=== PATIENT | female | born 1970 ===

== ENCOUNTER 2017-02-01 11:17 | Emergency (ER) | payer OTHER ==
[~2017-02-01] VITALS: Ht 167.6 cm; Wt 66.5 kg
[2017-02-01 11:22] VITALS: Ht 167.6 cm; Wt 66.5 kg
[2017-02-01] MEDS ORDERED: morphine 4 MG/ML VIAL IV STA (12:24)
[2017-02-01] MEDS ORDERED: ONDANSETRON 4 MG INJ IV STA (12:24)
[2017-02-01 12:49] LABS: BASOPHILS % 0.4 % (0.0-2.0); EOSINOPHILS # 0.3 10^3/ul (0.0-0.5); EOSINOPHILS % 2.6 % (0.0-7.0); HEMATOCRIT 39.5 % (37.0-47.0); LYMPHOCYTES # 1.7 10^3/ul (0.8-2.9); MEAN CORPUSCULAR HEMOGLOBIN 27.6 pg (29.0-33.0); MEAN CORPUSCULAR HGB CONC 32.9 g/dl (32.0-37.0); MEAN CORPUSCULAR VOLUME 83.9 fl (82.0-101.0); MEAN PLATELET VOLUME 9.6 fl (7.4-10.4); MONOCYTE # 0.6 10^3/ul (0.3-0.9); NEUTROPHIL # 7.8 10^3/ul (1.6-7.5); NEUTROPHILS % 74.6 % (39.0-77.0); PLATELET COUNT 243 10^3/UL (140-415); RED BLOOD COUNT 4.71 10^6/ul (4.20-5.40); RED CELL DISTRIBUTION WIDTH 14.1 % (11.5-14.5); WHITE BLOOD COUNT 10.5 10^3/ul (4.8-10.8)
[2017-02-01 12:58] LABS: ADD UMIC YES; UR ASCORBIC ACID 40 mg/dL (NEGATIVE); UR BILIRUBIN (Dip) NEGATIVE (NEGATIVE); UR BLOOD (Dip) NEGATIVE (NEGATIVE); UR CLARITY SLIGHTLY CLOUDY (CLEAR); UR COLOR YELLOW (YELLOW); UR GLUCOSE (Dip) NEGATIVE (NEGATIVE); UR KETONES (Dip) NEGATIVE (NEGATIVE); UR LEUKOCYTE ESTERASE (Dip) 2+ Leu/ul (NEGATIVE); UR NITRITE (Dip) NEGATIVE (NEGATIVE); UR RBC 14 /HPF (0-5); UR SPECIFIC GRAVITY (Dip) 1.017 (1.003-1.030); UR SQUAMOUS EPITHELIAL CELL MODERATE /HPF (FEW); UR TOTAL PROTEIN (Dip) NEGATIVE (NEGATIVE); UR UROBILINOGEN (Dip) NEGATIVE (NEGATIVE)
--- NOTE | 2017-02-01 13:12 | RADRPT ---
PROCEDURE: CT Abdomen and Pelvis without contrast. CLINICAL INDICATION: Abdominal and pelvic pain. TECHNIQUE: CT scan of the abdomen and pelvis without contrast was performed. Coronal and sagittal reformatted images were obtained from the axial source images. Images were reviewed on a high-resolu [employer] PACS workstation. Total exam DLP is 426.09 mGy-cm. CTDIvol is 7.78 mGy. One or more of the fo llomartell dose reduction techniques were used: Automated exposure control, adjustment of the mA and/or kV according to patient size, use of iterative reconstruction technique. COMPARISON: None. FINDINGS: The lung bases are normal. There is no pleural effusion. The liver is normal in size and attenuation. There is no focal hepatic lesion. The gallbladder and bile ducts are normal. The spleen is normal in size. There is no focal splenic lesion. Both adrenals are normal with no enlargement or mass. The pancreas is unremarkable with no mass or evidence of pancreatitis. There is no renal mass or hydronephrosis. There is a nonobstructing 0.2 cm calculus in the mid to lo wer left kidney. There is no other renal calculus or ureteral calculus. The abdominal aorta is not dilated. There is no retroperitoneal lymphadenopathy or mass. There is no pelvic lymphadenopathy. There is a right adnexal cystic mass measuring 4.5 x 3.5 cm. The bladder and distal ureters are normal. The periappendiceal region is unremarkable with no evidence of appendicitis. The appendix is well se en and appears normal. The bowel and mesentery are normal. There is no free fluid or free gas. The osseous structures are unremarkable with no fracture or lytic lesion. IMPRESSION: 1. Right adnexal cystic mass measuring 4.5 x 3.5 cm. Correlation with pelvic ultrasound is advised. 2. Nonobstructing 0.2 cm calculus in the mid to lower left kidney. No ureteral calculus or hydronep hrosis. 3. Normal appendix. 4. Otherwise unremarkable noncontrast CT scan of the abdomen and pelvis appear RPTAT: QQ .Rubin Braga MD, MD Date Time Electronically viewed and signed by .Rubin Braga MD, on 02/01/2017 13:12 .Nuno
[2017-02-01 13:18] LABS: ALBUMIN 4.4 g/dl (3.3-4.9); ALBUMIN/GLOBULIN RATIO 1.12; BILIRUBIN,INDIRECT 0.5 mg/dl (0-1.1); BILIRUBIN,TOTAL 0.5 mg/dl (0.2-1.3); CALCIUM 9.1 mg/dl (8.4-10.2); CREATININE 0.61 mg/dl (0.44-1.00); POTASSIUM 4.3 mmol/L (3.5-5.1); TOTAL PROTEIN 8.3 g/dl (6.1-8.1)
--- NOTE | 2017-02-01 13:30 | ERD ---
ER Documentation Chief Complaint Date/Time DATE: 02/01/17 TIME: 13:30 Chief Complaint Complains of abdominal pain x 3 days HPI This is 46-year-old female who presents the emergency department today complaining of lower abdominal pain for the past 5 days. States that she think she had a fever a couple of days ago. States that she does have some pain with urination. States that she also has been having irregular menstrual cycles and has not had her period for 3 months and then started spotting. States she has a history of ovarian cyst and had her tumor markers evaluated and as of late they were decreasing. Denies any vomiting, diarrhea, constipation ROS All systems reviewed and are negative except as per history of present illness. Medications Home Meds Active Scripts Acetaminophen* (Tylophen*) 500 Mg Capsule, 1 CAP PO Q6H Y for PAIN AND OR ELEVATED TEMP, #30 CAP Prov:HEIDY RAYGOZA PA-C 02/01/17 Cephalexin* (Keflex*) 500 Mg Capsule, 500 MG PO QID for 7 Days, CAP Prov:HEIDY RAYGOZA PA-C 02/01/17 Naproxen* (Naprosyn*) 500 Mg Tablet, 500 MG PO BID Y for PAIN AND/OR INFLAMMATION, #30 TAB Prov:HEIDY RAYGOZA PA-C 02/01/17 Allergies Allergies: Coded Allergies: No Known Allergy (Unverified , 02/01/17) Physical Exam Vitals Vital Signs Date Time Temp Pulse Resp B/P Pulse Ox O2 Delivery O2 Flow Rate FiO2 02/01/17 11:22 98.9 93 20 119/67 96 Physical Exam Const: NAD Head: Atraumatic Eyes: Normal Conjunctiva ENT: Normal External Ears, Nose and Mouth. Neck: Full range of motion..~ No meningismus. Resp: Clear to auscultation bilaterally Cardio: Regular rate and rhythm, no murmurs Abd: Soft, diffuse lower abdominal pain non distended. Normal bowel sounds Skin: No petechiae or rashes Back: No midline or flank tenderness Ext: No cyanosis, or edema Neur: Awake and alert Psych: Normal Mood and Affect Result Diagram: 02/01/17 1235 02/01/17 1235 Results 24 hrs Laboratory Tests Test 02/01/17 12:35 White Blood Count 10.510^3/ul Red Blood Count 4.7110^6/ul Hemoglobin 13.0g/dl Hematocrit 39.5% Mean Corpuscular Volume 83.9fl Mean Corpuscular Hemoglobin 27.6pg Mean Corpuscular Hemoglobin Concent 32.9g/dl Red Cell Distribution Width 14.1% Platelet Count 38570^3/UL Mean Platelet Volume 9.6fl Neutrophils % 74.6% Lymphocytes % 16.0% Monocytes % 6.0% Eosinophils % 2.6% Basophils % 0.4% Nucleated Red Blood Cells % 0.0/100WBC Neutrophils # 7.810^3/ul Lymphocytes # 1.710^3/ul Monocytes # 0.610^3/ul Eosinophils # 0.310^3/ul Basophils # 0.010^3/ul Nucleated Red Blood Cells # 0.010^3/ul Urine Color YELLOW Urine Clarity SLIGHTLY CLOUDY Urine pH 7.0 Urine Specific [place] 1.017 Urine Ketones NEGATIVEmg/dL Urine Nitrite NEGATIVEmg/dL Urine Bilirubin NEGATIVEmg/dL Urine Urobilinogen NEGATIVEmg/dL Urine Leukocyte Esterase 2+Trace/ul Urine Microscopic RBC 14/HPF Urine Microscopic WBC 9/HPF Urine Squamous Epithelial Cells MODERATE/HPF Urine Hemoglobin NEGATIVEmg/dL Urine Glucose NEGATIVEmg/dL Urine Total Protein NEGATIVEmg/dl Sodium Level 141mmol/L Potassium Level 4.3mmol/L Chloride Level 104mmol/L Carbon Dioxide Level 30mmol/L Anion Gap 11 Blood Urea Nitrogen 8mg/dl Creatinine 0.61mg/dl Glucose Level 95mg/dl Calcium Level 9.1mg/dl Total Bilirubin 0.5mg/dl Direct Bilirubin 0.00mg/dl Indirect Bilirubin 0.5mg/dl Aspartate Amino Transf (AST/SGOT) 36IU/L Alanine Aminotransferase (ALT/SGPT) 45IU/L Alkaline Phosphatase 69IU/L Total Protein 8.3g/dl Albumin 4.4g/dl Globulin 3.90g/dl Albumin/Globulin Ratio 1.12 Lipase 49U/L Current Medications Medications (Trade) Dose Ordered Sig/Teena Route PRN Reason Start Time Stop Time Status Last Admin Dose Admin Morphine Sulfate (morphine) 4 mg ONCE STAT IV 02/01/17 12:24 02/01/17 12:26 DC 02/01/17 12:39 Ondansetron HCl (Zofran Inj) 4 mg ONCE STAT IV 02/01/17 12:24 02/01/17 12:26 DC 02/01/17 12:39 DIAGNOSTIC IMAGING REPORT Patient: LEONILA RIBERA : 1970 Age: 46 Sex: F MR #: [id number] [facility] #: [id number] DOS: 02/01/17 1224 Ordering MD: HEIDY RAYGOZA PA-C Location: [facility] Room/Bed: PROCEDURE: CT Abdomen and Pelvis without contrast. CLINICAL INDICATION: Abdominal and pelvic pain. TECHNIQUE: CT scan of the abdomen and pelvis without contrast was performed. Coronal and sagittal reformatted images were obtained from the axial source images. Images were reviewed on a high-resolution PACS workstation. Total exam DLP is 426.09 mGy-cm. CTDIvol is 7.78 mGy. One or more of the following dose reduction techniques were used: Automated exposure control, adjustment of the mA and/or kV according to patient size, use of iterative reconstruction technique. COMPARISON: None. FINDINGS: The lung bases are normal. There is no pleural effusion. The liver is normal in size and attenuation. There is no focal hepatic lesion. The gallbladder and bile ducts are normal. The spleen is normal in size. There is no focal splenic lesion. Both adrenals are normal with no enlargement or mass. The pancreas is unremarkable with no mass or evidence of pancreatitis. There is no renal mass or hydronephrosis. There is a nonobstructing 0.2 cm calculus in the mid to lower left kidney. There is no other renal calculus or ureteral calculus. The abdominal aorta is not dilated. There is no retroperitoneal lymphadenopathy or mass. There is no pelvic lymphadenopathy. There is a right adnexal cystic mass measuring 4.5 x 3.5 cm. The bladder and distal ureters are normal. The periappendiceal region is unremarkable with no evidence of appendicitis. The appendix is well seen and appears normal. The bowel and mesentery are normal. There is no free fluid or free gas. The osseous structures are unremarkable with no fracture or lytic lesion. IMPRESSION: 1. Right adnexal cystic mass measuring 4.5 x 3.5 cm. Correlation with pelvic ultrasound is advised. 2. Nonobstructing 0.2 cm calculus in the mid to lower left kidney. No ureteral calculus or hydronephrosis. 3. Normal appendix. 4. Otherwise unremarkable noncontrast CT scan of the abdomen and pelvis appear RPTAT: QQ .Rubin Braga MD, MD Date Time Electronically viewed and signed by .Rubin Braga MD, MD on 02/01/2017 13:12 .R/ CC: HEIDY RAYGOZA PA-C DIAGNOSTIC IMAGING REPORT Patient: LEONILA RIBERA : 1970 Age: 46 Sex: F MR #: [id number] DOS: 02/01/17 0000 Ordering MD: HEIDY RAYGOZA PA-C Location: [facility] Room/Bed: PROCEDURE: US Pelvis. CLINICAL INDICATION: Pelvic pain. TECHNIQUE: The pelvis was evaluated with transabdominal and transvaginal sonography in the axial and sagittal planes. COMPARISON: No prior study is available for comparison. FINDINGS: Uterus: 9.4 x 4.8 x 5.8 cm. Endometrium: 34.0 mm. Right ovary: 4.8 x 3.5 x 3.7 cm. Left ovary: Not visualized. Uterine masses: None. Ovarian masses: There is a benign-appearing right ovarian cyst measuring 4.2 x 2.8 x 2.9 cm. The left ovary is not visualized. Color Doppler and pulsed Doppler sonography demonstrate normal flow to the right ovary Other pelvic masses: None. Free fluid: None. IMPRESSION: 1. Benign-appearing right ovarian cyst measuring 4.2 x 2.8 x 2.9 cm. Follow-up pelvic ultrasound in 6 weeks is advised. 2. Thickened endometrium measuring 34 mm. Follow-up pelvic ultrasound in 6 weeks advised. 3. Otherwise unremarkable study. RPTAT: QQ .Rubin Braga MD, MD Date Time Electronically viewed and signed by .Rubin Braga MD, MD on 02/01/2017 14:27 .R/ CC: HEIDY RAYGOZA PA-C Procedures/MDM This is a [age]-year-old female who presents emergency department today complaining of abdominal pain for the past 5 days. Given this I did obtain a laboratory workup as well as imaging. Laboratory workup shows no elevated white blood cell count. She is not anemic. Platelets are within normal limits. Electrolytes are within normal limits. Glucose is within normal limits. Liver enzymes are within normal limits. Lipase within normal limits. UA shows 2+ leukocyte esterase. Negative nitrites. 9 Microscopic white blood cells. urine test is negative CT abdomen pelvis noncontrast shows a right adnexal cystic mass measuring 4.5 x 3.5 cm. There is a nonobstructing 0.2 cm calculus in the mid to lower left kidney. There is no ureteral calculus or hydronephrosis. There is a normal- appearing appendix. There is no free fluid or free air. Given evidence of right adnexal cystic mass did obtain a pelvic ultrasound Pelvic ultrasound is a benign-appearing right ovarian cyst measuring 4.2 x 2.8 x 2.9 cm. Follow-up pelvic ultrasound is recommended in 6 weeks. There is also a thickened endometrium measuring 34 mm. There is normal flow to the right ovary. Left ovary is not visualized. There is no evidence of free fluid. I do have low suspicion for ectopic , tubo-ovarian abscess, ovarian torsion. Low suspicion for acute surgical abdomen. Patient was given morphine and Zofran here in the emergency department and pain improved. Patient symptoms at this time is consistent with lower abdominal pelvic pain that may be related to this ovarian cyst. Patient does also have 2 + leukocyte esterase and she was complaining of some dysuria and therefore I will treat her with Keflex for her UTI. Patient will be given a prescription for Naprosyn and Tylenol for home as well she has been instructed to follow-up with [facility] especially given she has been having irregular menstrual cycles. At this time the patient is stable for discharge and outpatient management. Patient should follow up with their PCP in the next 1-2 days. They may return to the emergency department sooner for any persistent or worsening of symptoms. Patient understood and agreed with the plan. Departure Diagnosis: Primary Impression: Abdominal pain Abdominal location: lower abdomen, unspecified Qualified Code: R10.30 - Lower abdominal pain Additional Impression: UTI (urinary tract infection) Urinary tract infection type: site unspecified Hematuria presence: with hematuria Qualified Code: N39.0 - Urinary tract infection with hematuria, site unspecified Condition: HEIDY Laureano PA-C Feb 01, 2017 13:30
--- NOTE | 2017-02-01 14:27 | RADRPT ---
PROCEDURE: US Pelvis. CLINICAL INDICATION: Pelvic pain. TECHNIQUE: The pelvis was evaluated with transabdominal and transvaginal sonography in the axial a nd sagittal planes. COMPARISON: No prior study is available for comparison. FINDINGS: Uterus: 9.4 x 4.8 x 5.8 cm. Endometrium: 34.0 mm. Right ovary: 4.8 x 3.5 x 3.7 cm. Left ovary: Not visualized. Uterine masses: None. Ovarian masses: There is a benign-appearing right ovarian cyst measuring 4.2 x 2.8 x 2.9 cm. The lef t ovary is not visualized. Color Doppler and pulsed Doppler sonography demonstrate normal flow to th e right ovary Other pelvic masses: None. Free fluid: None. IMPRESSION: 1. Benign-appearing right ovarian cyst measuring 4.2 x 2.8 x 2.9 cm. Follow-up pelvic ultrasound in 6 weeks is advised. 2. Thickened endometrium measuring 34 mm. Follow-up pelvic ultrasound in 6 weeks advised. 3. Otherwise unremarkable study. RPTAT: QQ .Rubin Braga MD, Date Time Electronically viewed and signed by .Rubin Braga MD, on 02/01/2017 14:27 .R/
[2017-02-01] MEDS ORDERED: NAPR-260 PO (14:40)
[2017-02-01] MEDS ORDERED: CEPH-443 PO (14:41)
[2017-02-01] MEDS ORDERED: ACET500C5 PO (14:42)
== END 2017-02-01 15:21 | disposition home or self-care (01) ==
LOC: FTE 11:17
DX: N39.0 Urinary tract infection, site not specified (principal)
CPT/HCPCS: 36415; 74176; 76830; 76856; 80053; 81001; 83690; 85025; 96374; 96375; J2270; J2405; Z7502